=== PATIENT | female | born 1985 | race African-American/Black ===

== ENCOUNTER 2020-10-21 13:09 | Emergency (ER) | payer MEDICAID ==
[~2020-10-21] VITALS: Ht 172.7 cm; Wt 73.9 kg
[~2020-10-21 13:09] MED LIST: CEPH-37 PO; NITR-87 PO; PREN-96 PO
[2020-10-21 14:29] LABS: Basophils # (auto) 0 10 ^3/uL (0-0.2); Eosinophils # (auto) 0.1 10 ^3/uL (0-0.8); Lymphocytes % (auto) 15.6 % (10.0-50.0); Monocytes # (auto) 0.8 10 ^3/uL (0-1.3); Red Blood Cells 3.76 10^6/uL (4.0-5.20)
[2020-10-21 14:31] LABS: Basophils % (auto) 0.2 % (0.0-2.0); Eosinophils % (auto) 0.7 % (0.0-7.0); Hematocrit 37.7 % (36.0-46.0); Hemoglobin 13.1 g/dL (12.2-16.2); Mean Corpuscular Hemoglobin 34.7 pg (28.0-32.0); Mean Corpuscular Hgb Conc. 34.6 g/dL (32.0-36.0); Mean Corpuscular Volume 100.3 fL (80.0-100.0); Monocytes % (auto) 6.5 % (0.0-12.0); Neutrophils # (auto) 9.8 10 ^3/uL (1.6-8.6); Red Cell Distribution Width 12.4 % (11.8-14.3); White Blood Cell 12.8 10^3/uL (4.4-10.8)
[2020-10-21 15:33] LABS: Urine Bacteria FEW /hpf (None Seen); Urine Blood 3+ /uL (Negative); Urine Specific Gravity 1.004 (1.001-1.035); Urine WBC 6 /hpf (0 - 5)
[2020-10-21 17:05] VITALS: BP 110/66
== END 2020-10-21 17:28 | disposition home or self-care (01) ==
LOC: ER 13:09
DX: O20.0 Threatened abortion (principal); O23.41 Unspecified infection of urinary tract in pregnancy, first trimester; Z3A.11 11 weeks gestation of pregnancy; Z79.899 Other long term (current) drug therapy
CPT/HCPCS: 36415; 76801; 81001; 84702; 85025

== ENCOUNTER 2021-02-02 09:52 | Observation (INO) | payer MEDICAID | END 2021-02-02 11:39 | disposition home or self-care (01) | LOC: LDRP 09:52 | PROVIDERS: ADMIT Obstetrics & Gynecology Obstetrics; ATTEND Obstetrics & Gynecology Obstetrics | DX: O26.852 Spotting complicating pregnancy, second trimester (principal); O26.893 Other specified pregnancy related conditions, third trimester; N89.8 Other specified noninflammatory disorders of vagina; Z3A.26 26 weeks gestation of pregnancy | CPT/HCPCS: 59025; 81002; 94760; G0378; G0379 ==

== ENCOUNTER 2021-03-30 08:29 | Observation (INO) | payer MEDICAID | END 2021-03-30 10:08 | disposition home or self-care (01) | LOC: LDRP 08:29 | PROVIDERS: ADMIT Obstetrics & Gynecology Obstetrics; ATTEND Obstetrics & Gynecology Obstetrics | DX: O99.891 Other specified diseases and conditions complicating pregnancy (principal); N13.30 Unspecified hydronephrosis; Z3A.34 34 weeks gestation of pregnancy | CPT/HCPCS: 59025; 76818; 81002; 94760; G0378; G0379 ==

== ENCOUNTER 2021-04-08 09:00 | Outpatient (CLI) | payer MEDICAID | END 2021-04-08 09:50 | disposition home or self-care (01) | LOC: OB 09:00 → LDRP 09:10 → UNDOADMOB 09:10 → EDSTATUS 09:49 → UNDODISOB 09:50 → OB 09:50 | PROVIDERS: ATTEND Obstetrics & Gynecology | DX: O99.891 Other specified diseases and conditions complicating pregnancy (principal); N13.30 Unspecified hydronephrosis; Z3A.00 Weeks of gestation of pregnancy not specified | CPT/HCPCS: 76818; G0378 ==

== ENCOUNTER 2022-01-09 19:37 | Observation (INO) | payer MEDICAID | END 2022-01-09 20:45 | disposition home or self-care (01) | LOC: LDRP 19:37 | PROVIDERS: ADMIT Obstetrics & Gynecology Obstetrics; ATTEND Obstetrics & Gynecology Obstetrics | DX: O26.892 Other specified pregnancy related conditions, second trimester (principal); R10.9 Unspecified abdominal pain; O26.852 Spotting complicating pregnancy, second trimester; O99.282 Endocrine, nutritional and metabolic diseases complicating pregnancy, second trimester; E86.0 Dehydration; Z3A.21 21 weeks gestation of pregnancy | CPT/HCPCS: 59025; 81002; G0378 ==

== ENCOUNTER 2022-02-27 14:15 | Observation (INO) | payer MEDICAID | END 2022-02-27 15:47 | disposition home or self-care (01) | LOC: LDRP 14:15 | PROVIDERS: ADMIT Obstetrics & Gynecology; ATTEND Obstetrics & Gynecology | DX: O40.3XX0 Polyhydramnios, third trimester, not applicable or unspecified (principal); O09.523 Supervision of elderly multigravida, third trimester; Z3A.28 28 weeks gestation of pregnancy | CPT/HCPCS: 59025; 81002; 94760; G0378 ==

== ENCOUNTER 2022-03-02 18:45 | Observation (INO) | payer MEDICAID | END 2022-03-02 19:52 | disposition home or self-care (01) | LOC: LDRP 18:45 | PROVIDERS: ADMIT Obstetrics & Gynecology; ATTEND Obstetrics & Gynecology | DX: O40.3XX0 Polyhydramnios, third trimester, not applicable or unspecified (principal); O09.523 Supervision of elderly multigravida, third trimester; Z3A.28 28 weeks gestation of pregnancy | CPT/HCPCS: 59025; 81002; G0378 ==

== ENCOUNTER 2022-03-09 19:05 | Observation (INO) | payer MEDICAID | END 2022-03-09 19:35 | disposition left against medical advice (07) | LOC: LDRP 19:05 | PROVIDERS: ADMIT Obstetrics & Gynecology; ATTEND Obstetrics & Gynecology | DX: O40.3XX0 Polyhydramnios, third trimester, not applicable or unspecified (principal); Z3A.30 30 weeks gestation of pregnancy ==

== ENCOUNTER 2022-03-10 14:29 | Observation (INO) | payer MEDICAID | END 2022-03-10 17:26 | disposition home or self-care (01) | LOC: LDRP 14:29 → UNDOADMOB 14:29 → LDRP 15:35 → UNDODISOB 17:26 | PROVIDERS: ADMIT Obstetrics & Gynecology; ATTEND Obstetrics & Gynecology | DX: O40.3XX0 Polyhydramnios, third trimester, not applicable or unspecified (principal); Z3A.30 30 weeks gestation of pregnancy | CPT/HCPCS: 59025; 76818; 81002; 94760; G0378 ==

== ENCOUNTER 2022-03-12 14:11 | Observation (INO) | payer MEDICAID ==
[~2022-03-12 14:11] MED LIST changes: -CEPH-37 PO; -NITR-87 PO
== END 2022-03-12 16:35 | disposition home or self-care (01) ==
LOC: LDRP 14:59 → UNDOADMOB 14:59 → LDRP 15:01
PROVIDERS: ADMIT Obstetrics & Gynecology; ATTEND Obstetrics & Gynecology
DX: O40.3XX0 Polyhydramnios, third trimester, not applicable or unspecified (principal); Z3A.30 30 weeks gestation of pregnancy
CPT/HCPCS: 59025; 76818; 81002; G0378

== ENCOUNTER 2022-03-16 15:35 | Observation (INO) | payer MEDICAID | END 2022-03-16 16:40 | disposition home or self-care (01) | LOC: LDRP 15:35 → UNDOADMOB 15:35 → LDRP 15:39 | PROVIDERS: ADMIT Obstetrics & Gynecology; ATTEND Obstetrics & Gynecology | DX: O40.3XX0 Polyhydramnios, third trimester, not applicable or unspecified (principal); O26.893 Other specified pregnancy related conditions, third trimester; R10.2 Pelvic and perineal pain; Z3A.30 30 weeks gestation of pregnancy | CPT/HCPCS: 59025; 76818; 81002; 94760; G0378 ==

== ENCOUNTER 2022-03-19 15:12 | Observation (INO) | payer MEDICAID | END 2022-03-19 16:30 | disposition home or self-care (01) | LOC: UNDOADMOB 15:12 → LDRP 15:12 | PROVIDERS: ADMIT Obstetrics & Gynecology; ATTEND Obstetrics & Gynecology | DX: O40.3XX0 Polyhydramnios, third trimester, not applicable or unspecified (principal); O32.1XX0 Maternal care for breech presentation, not applicable or unspecified; Z3A.31 31 weeks gestation of pregnancy | CPT/HCPCS: 59025; 76818; 81002; 94760; G0378 ==

== ENCOUNTER 2022-03-23 14:50 | Observation (INO) | payer MEDICAID | END 2022-03-23 16:05 | disposition home or self-care (01) | LOC: UNDOADMOB 14:50 → LDRP 14:50 | PROVIDERS: ADMIT Obstetrics & Gynecology; ATTEND Obstetrics & Gynecology | DX: O40.3XX0 Polyhydramnios, third trimester, not applicable or unspecified (principal); Z3A.31 31 weeks gestation of pregnancy | CPT/HCPCS: 59025; 76818; 81002; 94760; G0378 ==

== ENCOUNTER 2022-03-26 14:37 | Observation (INO) | payer MEDICAID | END 2022-03-26 16:21 | disposition home or self-care (01) | LOC: UNDOADMOB 14:59 → LDRP 14:59 | PROVIDERS: ADMIT Obstetrics & Gynecology; ATTEND Obstetrics & Gynecology | DX: O40.3XX0 Polyhydramnios, third trimester, not applicable or unspecified (principal); O36.8330 Maternal care for abnormalities of the fetal heart rate or rhythm, third trimester, not applicable or unspecified; Z3A.32 32 weeks gestation of pregnancy | CPT/HCPCS: 59025; 76818; 81002; 94760; G0378 ==

== ENCOUNTER 2022-03-30 13:07 | Observation (INO) | payer MEDICAID | END 2022-03-30 17:07 | disposition home or self-care (01) | LOC: LDRP 14:55 → UNDOADMOB 14:55 → LDRP 15:03 | PROVIDERS: ADMIT Obstetrics & Gynecology; ATTEND Obstetrics & Gynecology | DX: O40.3XX0 Polyhydramnios, third trimester, not applicable or unspecified (principal); O26.893 Other specified pregnancy related conditions, third trimester; R10.2 Pelvic and perineal pain; Z3A.32 32 weeks gestation of pregnancy | CPT/HCPCS: 59025; 76818; 81002; 94760; G0378 ==

== ENCOUNTER 2022-04-02 09:31 | Observation (INO) | payer MEDICAID | END 2022-04-02 15:23 | disposition home or self-care (01) | LOC: LDRP 14:03 → UNDOADMOB 14:25 → LDRP 14:25 → UNDODISOB 15:23 | PROVIDERS: ADMIT Obstetrics & Gynecology; ATTEND Obstetrics & Gynecology | DX: O40.3XX0 Polyhydramnios, third trimester, not applicable or unspecified (principal); Z3A.33 33 weeks gestation of pregnancy | CPT/HCPCS: 59025; 76818; 81002; G0378 ==

== ENCOUNTER 2022-04-06 14:25 | Observation (INO) | payer MEDICAID | END 2022-04-06 15:43 | disposition home or self-care (01) | LOC: LDRP 14:25 → UNDOADMOB 14:25 → LDRP 14:28 | PROVIDERS: ADMIT Obstetrics & Gynecology; ATTEND Obstetrics & Gynecology | DX: O40.3XX0 Polyhydramnios, third trimester, not applicable or unspecified (principal); Z3A.33 33 weeks gestation of pregnancy | CPT/HCPCS: 59025; 76818; 81002; 94760; G0378 ==

== ENCOUNTER 2022-04-09 08:56 | Observation (INO) | payer MEDICAID | END 2022-04-09 15:23 | disposition home or self-care (01) | LOC: LDRP 14:15 → UNDOADMOB 14:37 → LDRP 14:37 → UNDODISOB 15:23 | PROVIDERS: ADMIT Obstetrics & Gynecology; ATTEND Obstetrics & Gynecology | DX: O40.3XX0 Polyhydramnios, third trimester, not applicable or unspecified (principal); Z3A.34 34 weeks gestation of pregnancy | CPT/HCPCS: 59025; 76818; 81002; 94760; G0378 ==

== ENCOUNTER 2022-04-13 14:04 | Observation (INO) | payer MEDICAID | END 2022-04-13 15:48 | disposition home or self-care (01) | LOC: UNDOADMOB 14:04 → LDRP 14:04 → UNDODISOB 15:48 | PROVIDERS: ADMIT Obstetrics & Gynecology; ATTEND Obstetrics & Gynecology | DX: O40.3XX0 Polyhydramnios, third trimester, not applicable or unspecified (principal); Z3A.34 34 weeks gestation of pregnancy | CPT/HCPCS: 59025; 76818; 81002; 94760; G0378 ==

== ENCOUNTER 2022-04-14 15:18 | Observation (INO) | payer MEDICAID ==
[2022-04-14 17:43] LABS: Urine Bacteria FEW /hpf (None Seen); Urine Blood Negative /uL (Negative); Urine Budding Yeast FEW /hpf (None Seen); Urine Mucus FEW (None Seen); Urine Specific Gravity 1.019 (1.001-1.035); Urine WBC 5 /hpf (0 - 5)
[2022-04-16 08:06] LABS: RPR Non Reactive (Non Reactive)
== END 2022-04-14 16:50 | disposition home or self-care (01) ==
LOC: LDRP 15:18 → UNDOADMOB 15:18 → LDRP 16:11
PROVIDERS: ADMIT Obstetrics & Gynecology; ATTEND Obstetrics & Gynecology
DX: O26.893 Other specified pregnancy related conditions, third trimester (principal); N89.8 Other specified noninflammatory disorders of vagina; L29.2 Pruritus vulvae; O62.9 Abnormality of forces of labor, unspecified; Z3A.35 35 weeks gestation of pregnancy; Z79.899 Other long term (current) drug therapy
CPT/HCPCS: 59025; 81001; 81002; 86592; 87086; 87210; 87491; 87591; G0378

== ENCOUNTER 2022-04-16 14:02 | Observation (INO) | payer MEDICAID | END 2022-04-16 15:57 | disposition home or self-care (01) | LOC: LDRP 14:02 | PROVIDERS: ADMIT Obstetrics & Gynecology; ATTEND Obstetrics & Gynecology | DX: O40.3XX0 Polyhydramnios, third trimester, not applicable or unspecified (principal); Z3A.35 35 weeks gestation of pregnancy | CPT/HCPCS: 59025; 76818; 81002; 94760; G0378 ==

== ENCOUNTER 2022-04-20 14:16 | Observation (INO) | payer MEDICAID | END 2022-04-20 15:30 | disposition home or self-care (01) | LOC: LDRP 14:16 → UNDOADMOB 14:16 → LDRP 14:29 | PROVIDERS: ADMIT Obstetrics & Gynecology; ATTEND Obstetrics & Gynecology | DX: O24.419 Gestational diabetes mellitus in pregnancy, unspecified control (principal); Z3A.35 35 weeks gestation of pregnancy | CPT/HCPCS: 59025; 81002; 94760; G0378 ==

== ENCOUNTER 2022-04-22 14:44 | Observation (INO) | payer MEDICAID | END 2022-04-22 16:35 | disposition home or self-care (01) | LOC: LDRP 14:58 → UNDOADMOB 15:02 → LDRP 15:02 | PROVIDERS: ADMIT Obstetrics & Gynecology; ATTEND Obstetrics & Gynecology | DX: O40.3XX0 Polyhydramnios, third trimester, not applicable or unspecified (principal); O09.523 Supervision of elderly multigravida, third trimester; Z3A.36 36 weeks gestation of pregnancy | CPT/HCPCS: 59025; 76818; 81002; 94760; G0378 ==

== ENCOUNTER 2022-04-27 08:51 | Observation (INO) | payer MEDICAID ==
[2022-05-12] MEDS ORDERED: ACETAMINOPHEN 325 MG TAB PO ONE (17:15)
== END 2022-05-12 17:49 | disposition home or self-care (01) ==
LOC: UNDOADMOB 05-12 14:27 → LDRP 05-12 14:27
PROVIDERS: ADMIT Obstetrics & Gynecology; ATTEND Obstetrics & Gynecology
DX: O40.3XX0 Polyhydramnios, third trimester, not applicable or unspecified (principal); O62.9 Abnormality of forces of labor, unspecified; Z3A.39 39 weeks gestation of pregnancy
CPT/HCPCS: 59025; 76818; 81002; 94760; G0378

== ENCOUNTER 2022-04-29 07:42 | Observation (INO) | payer MEDICAID | END 2022-04-29 15:55 | disposition home or self-care (01) | LOC: LDRP 14:07 → UNDOADMOB 14:14 → LDRP 14:14 | PROVIDERS: ADMIT Obstetrics & Gynecology; ATTEND Obstetrics & Gynecology | DX: O40.3XX0 Polyhydramnios, third trimester, not applicable or unspecified (principal); Z3A.37 37 weeks gestation of pregnancy | CPT/HCPCS: 59025; 76818; 81002; 94760; G0378 ==

== ENCOUNTER 2022-05-15 17:15 | Observation (INO) | payer MEDICAID ==
[2022-05-15] MEDS ORDERED: WITCH HAZEL-GLYCERIN PAD TOP ONE (18:15)
[2022-05-15] MEDS ORDERED: TUCKS TOP (19:05)
== END 2022-05-15 19:22 | disposition home or self-care (01) ==
LOC: LDRP 17:15
PROVIDERS: ADMIT Obstetrics & Gynecology; ATTEND Obstetrics & Gynecology
DX: O99.891 Other specified diseases and conditions complicating pregnancy (principal); M54.50 Low back pain, unspecified; M62.89 Other specified disorders of muscle; O62.9 Abnormality of forces of labor, unspecified; Z3A.39 39 weeks gestation of pregnancy
CPT/HCPCS: 59025; 81002; 94760; G0378

== ENCOUNTER → 2022-05-18 | Outpatient (CLI) | payer MEDICAID ==
[~2022-05-18] MED LIST changes: +TUCKS TOP
[2022-05-18 09:02] LABS: Basophils # (auto) 0 10 ^3/uL (0-0.2); Eosinophils # (auto) 0.1 10 ^3/uL (0-0.8); Lymphocytes # (auto) 1.8 10 ^3/uL (0.4-5.4); Monocytes # (auto) 0.9 10 ^3/uL (0-1.3); Neutrophils % (auto) 66.9 % (37.0-80.0)
[2022-05-18 09:04] LABS: Basophils % (auto) 0.2 % (0.0-2.0); Eosinophils % (auto) 0.8 % (0.0-7.0); Hematocrit 37.5 % (36.0-46.0); Lymphocytes % (auto) 21.3 % (10.0-50.0); Mean Corpuscular Hgb Conc. 34.7 g/dL (32.0-36.0); Mean Corpuscular Volume 106.5 fL (80.0-100.0); Monocytes % (auto) 10.8 % (0.0-12.0); Neutrophils # (auto) 5.7 10 ^3/uL (1.6-8.6); Nucleated Red Blood Cells % 0.1 %; Red Blood Cells 3.52 10^6/uL (4.0-5.20); Red Cell Distribution Width 12.6 % (11.8-14.3); White Blood Cell 8.5 10^3/uL (4.4-10.8)
== END | disposition home or self-care (01) ==
LOC: LAB 08:50
PROVIDERS: ATTEND Obstetrics & Gynecology
DX: Z34.80 Encounter for supervision of other normal pregnancy, unspecified trimester (principal); Z3A.00 Weeks of gestation of pregnancy not specified
CPT/HCPCS: 36415; 85025

== ENCOUNTER 2022-05-19 07:03 | Inpatient (IN) | payer MEDICAID ==
[~2022-05-19] VITALS: Ht 172.7 cm; Wt 86.2 kg
[2022-05-20] MEDS ORDERED: LACT. RINGERS/OXYTOCIN 20UNITS 500 ML IV ONE ×2 (07:15→07:45)
[2022-05-20] MEDS ORDERED: miSOPROStol 100 mcg TAB PR PRN (07:15)
[2022-05-20] MEDS ORDERED: WITCH HAZEL-GLYCERIN PAD TOP PRN (07:15)
[2022-05-20] MEDS ORDERED: PROMETHAZINE HCL 25 MG/ML 1ML IV PRN (07:15)
[2022-05-20] MEDS ORDERED: BUTORPHANOL TARTRATE 2 MG/1 ML VIAL IV PRN ×2 (07:15)
[2022-05-20] MEDS ORDERED: METHYLERGONOVINE MALEATE 0.2 MG/ML AMP IM PRN (07:15)
[2022-05-20] MEDS ORDERED: DERMOPLAST 60ML BOTTLE TOP PRN (07:15)
[2022-05-20] MEDS ORDERED: LIDOCAINE 2%HCL (LOCAL ANESTH.) INJ 20ML MDV IJ PRN (07:15)
[2022-05-20] MEDS ORDERED: CARBOPROST TROMETHAMINE 250 MCG/1ML VIAL IM PRN (07:15)
[2022-05-20] MEDS ORDERED: PHISODERM TOP SOLN 240ML BTL TOP PRN (07:15)
[2022-05-20] MEDS ORDERED: PENICILLIN G POT 5MIL/D5 50ML 50 ML IV ONE (07:30)
[2022-05-20 07:47] LABS: Hematocrit 38.3 % (36.0-46.0); Lymphocytes # (auto) 1.7 10 ^3/uL (0.4-5.4); Monocytes # (auto) 0.9 10 ^3/uL (0-1.3); Red Blood Cells 3.67 10^6/uL (4.0-5.20); Red Cell Distribution Width 12.7 % (11.8-14.3)
[2022-05-20 07:50] LABS: Basophils # (auto) 0.1 10 ^3/uL (0-0.2); Basophils % (auto) 0.6 % (0.0-2.0); Eosinophils # (auto) 0.1 10 ^3/uL (0-0.8); Eosinophils % (auto) 0.8 % (0.0-7.0); Hemoglobin 13.7 g/dL (12.2-16.2); Lymphocytes % (auto) 19.7 % (10.0-50.0); Mean Corpuscular Hemoglobin 37.4 pg (28.0-32.0); Mean Corpuscular Hgb Conc. 35.9 g/dL (32.0-36.0); Mean Corpuscular Volume 104.4 fL (80.0-100.0); Monocytes % (auto) 10.7 % (0.0-12.0); Neutrophils # (auto) 5.9 10 ^3/uL (1.6-8.6); Neutrophils % (auto) 68.2 % (37.0-80.0); Nucleated Red Blood Cells % 0.2 %; White Blood Cell 8.6 10^3/uL (4.4-10.8)
[2022-05-20 08:05] LABS: Urine Bacteria FEW /hpf (None Seen); Urine Blood Negative /uL (Negative); Urine Mucus FEW (None Seen); Urine Specific Gravity 1.016 (1.001-1.035); Urine WBC 9 /hpf (0 - 5)
[2022-05-20 08:12] LABS: Albumin 2.8 g/dL (3.4-5.0); Calcium 8.8 mg/dL (8.5-10.1); Potassium 3.7 mmol/L (3.5-5.1)
[2022-05-20 08:15] LABS: BUN/Creatinine Ratio 9.7 (10.0-20.0); Bilirubin, Total 0.6 mg/dL (0.2-1.0); Total Protein 6.9 g/dL (6.4-8.2)
[2022-05-20] MEDS ORDERED: miSOPROStol 50 MCG per PRE-CUT 1/2 TAB PO PRN (08:30)
[2022-05-20 08:32] LABS: Alcohol, Urine < 3.0 mg/dL (0-10); Amphetamine Screen, Urine NEGATIVE (NEGATIVE); Barbiturate Scree,Urine NEGATIVE (NEGATIVE); Benzodiazephine Screen, Urine NEGATIVE (NEGATIVE); Cannabinoid Screen, Urine NEGATIVE (NEGATIVE); Cocaine Screen, Urine NEGATIVE (NEGATIVE); Opiate Scree,Urine NEGATIVE (NEGATIVE); Phencyclidine Screen, Urine NEGATIVE (NEGATIVE)
[2022-05-20 08:33] LABS: INR 0.94 (0.9-1.15); Partial Thromboplastin Time 26.8 sec (24.6-33.4)
[2022-05-20] MEDS: LACTATED RINGER'S 1,000 ML IV SCH ×2 (08:35→15:15)
[2022-05-20] MEDS ORDERED: DIPHENOXYLATE W/ATROPINE 2.5 MG TAB PO SCH (10:00)
[2022-05-20] MEDS ORDERED: PENICILLIN G POTASSIUM 2,500,000 UNITS in D5W 5% 50 ML IV SCH (11:30)
[2022-05-20] MEDS ORDERED: TERBUTALINE SULFATE 1 MG/ML 1ML VIAL SC PRN (12:30)
[2022-05-20] MEDS ORDERED: LACT. RINGERS/OXYTOCIN 20UNITS 1,000 ML IV SCH (12:30)
[2022-05-20] MEDS: PENICILLIN G POTASSIUM 2,500,000 UNITS in D5W 5% 50 ML IV SCH ×2 (13:08→16:30)
[2022-05-20] MEDS ORDERED: LIDOCAINE W/ EPINEPHRINE 1.5 % INJ 5ML AMP IJ ONE (14:00)
[2022-05-20] MEDS ORDERED: fentaNYL CITRATE 100 MCG/2 ML VL IV ONE (14:00)
[2022-05-20] MEDS ORDERED: ROPIVACAINE HCL 200 ML EPI SCH (14:00)
[2022-05-20] MEDS ORDERED: ePHEDrine SULFATE 50 MG/ML AMP IV ONE (14:00)
[2022-05-20] MEDS ORDERED: NALOXONE HCL 0.4 MG/ML VIAL IV ONE (14:00)
[2022-05-20] MEDS ORDERED: Lidocaine W-Epinephrine 1.5%-1:200,000 INJ 10ml Vial ONE (14:14)
[2022-05-20] MEDS ORDERED: ACETAMINOPHEN 325 MG TAB PO PRN (17:00)
[2022-05-20] MEDS ORDERED: ONDANSETRON ODT 4 MG TAB PO PRN (17:00)
[2022-05-20 19:00] VITALS: BP 99/57
[2022-05-20 22:45] VITALS: BP 101/62
[2022-05-21] MEDS: IBUPROFEN 600 MG TAB PO PRN ×3 (00:37→18:50)
[2022-05-21 03:00] VITALS: BP 107/57
[2022-05-21 07:15] VITALS: BP 98/54
[2022-05-21 08:07] LABS: RPR Non Reactive (Non Reactive)
[2022-05-21 09:30] LABS: Basophils # (auto) 0 10 ^3/uL (0-0.2); Eosinophils # (auto) 0.1 10 ^3/uL (0-0.8); Hemoglobin 13.2 g/dL (12.2-16.2); Monocytes # (auto) 1.3 10 ^3/uL (0-1.3); Nucleated Red Blood Cells % 0.1 %
[2022-05-21 09:32] LABS: Basophils % (auto) 0.3 % (0.0-2.0); Eosinophils % (auto) 0.7 % (0.0-7.0); Lymphocytes # (auto) 1.7 10 ^3/uL (0.4-5.4); Lymphocytes % (auto) 12.9 % (10.0-50.0); Mean Corpuscular Hemoglobin 36.2 pg (28.0-32.0); Mean Corpuscular Hgb Conc. 33.9 g/dL (32.0-36.0); Mean Corpuscular Volume 106.5 fL (80.0-100.0); Monocytes % (auto) 10.5 % (0.0-12.0); Neutrophils # (auto) 9.7 10 ^3/uL (1.6-8.6); Neutrophils % (auto) 75.6 % (37.0-80.0); Red Blood Cells 3.66 10^6/uL (4.0-5.20); Red Cell Distribution Width 12.7 % (11.8-14.3); White Blood Cell 12.8 10^3/uL (4.4-10.8)
[2022-05-21 11:00] VITALS: BP 105/67
[2022-05-21 15:15] VITALS: BP 95/53
[2022-05-21 18:50] VITALS: BP 103/61
[2022-05-21 22:44] VITALS: BP 100/72
[2022-05-22 03:05] VITALS: BP 98/45
[2022-05-22] MEDS: IBUPROFEN 600 MG TAB PO PRN (03:27)
[2022-05-22 07:15] VITALS: BP 114/50
== END 2022-05-22 09:15 | disposition home or self-care (01) | DRG 560 ==
LOC: EDSTATUS 07:03 → LDRP 05-20 07:03
PROVIDERS: ADMIT Obstetrics & Gynecology; ATTEND Obstetrics & Gynecology
PROC: 10E0XZZ Delivery of Products of Conception, External Approach (ICD-10-PCS; principal; 2022-05-20)
PROC: 3E0P7VZ Introduction of Hormone into Female Reproductive, Via Natural or Artificial Opening (ICD-10-PCS; 2022-05-20)
PROC: 10907ZC Drainage of Amniotic Fluid, Therapeutic from Products of Conception, Via Natural or Artificial Opening (ICD-10-PCS; 2022-05-20)
PROC: 0UQMXZZ Repair Vulva, External Approach (ICD-10-PCS; 2022-05-20)
PROC: 3E0R3BZ Introduction of Anesthetic Agent into Spinal Canal, Percutaneous Approach (ICD-10-PCS; 2022-05-20)
PROC: 00HU33Z Insertion of Infusion Device into Spinal Canal, Percutaneous Approach (ICD-10-PCS; 2022-05-20)
DX: O48.0 Post-term pregnancy (principal); Z37.0 Single live birth; O69.81X0 Labor and delivery complicated by cord around neck, without compression, not applicable or unspecified; O70.0 First degree perineal laceration during delivery; Z20.822 Contact with and (suspected) exposure to COVID-19; Z3A.40 40 weeks gestation of pregnancy; O77.0 Labor and delivery complicated by meconium in amniotic fluid
CPT/HCPCS: 36415; 59025; 59409; 62282; 80053; 80307; 81001; 81002; 85025; 85610; 85730; 86592; 86850; 86900; 86901; 87426; 94760; 94762; 96360; 96361; G0378; J2540; J2590; J7060

== ENCOUNTER 2023-05-09 11:15 | Emergency (ER) | payer MEDICAID ==
[~2023-05-09] VITALS: Ht 172.7 cm; Wt 72.9 kg
[2023-05-09 11:34] VITALS: BP 133/50; PULSE 65; RESP 17; O2SAT 99
[2023-05-09 13:25] LABS: Basophils # (auto) 0 10 ^3/uL (0-0.2); Basophils % (auto) 0.2 % (0.0-2.0); Mean Corpuscular Hgb Conc. 33.5 g/dL (32.0-36.0); Red Cell Distribution Width 12.3 % (11.8-14.3)
[2023-05-09 13:27] LABS: Eosinophils # (auto) 0.2 10 ^3/uL (0-0.8); Eosinophils % (auto) 2.5 % (0.0-7.0); Hematocrit 43.3 % (36.0-46.0); Hemoglobin 14.5 g/dL (12.2-16.2); Lymphocytes # (auto) 1.9 10 ^3/uL (0.4-5.4); Lymphocytes % (auto) 20.5 % (10.0-50.0); Mean Corpuscular Hemoglobin 34.4 pg (28.0-32.0); Mean Corpuscular Volume 102.8 fL (80.0-100.0); Monocytes # (auto) 0.6 10 ^3/uL (0-1.3); Monocytes % (auto) 6.8 % (0.0-12.0); Neutrophils # (auto) 6.5 10 ^3/uL (1.6-8.6); Nucleated Red Blood Cells % 0.1 %; Red Blood Cells 4.21 10^6/uL (4.0-5.20); White Blood Cell 9.3 10^3/uL (4.4-10.8)
[2023-05-09 13:49] LABS: Alanine Aminotransferase 32 U/L (7-40); Albumin 4.5 g/dL (3.2-4.8); Alkaline Phosphatase 91 U/L (46-116); Anion Gap 6 (5-15); Aspartate Aminotransferase 24 U/L (13-40); BUN/Creatinine Ratio 9.6 (10.0-20.0); Blood Urea Nitrogen 7 mg/dL (9-23); Calcium 9.7 mg/dL (8.7-10.4); Carbon Dioxide 26 mmol/L (20-30); Chloride 106 mmol/L (98-107); Glucose 91 mg/dL (74-106); Lipase 31 U/L (12-53); Potassium 4.1 mmol/L (3.5-5.1); Sodium 138 mmol/L (136-145)
[2023-05-09 13:50] LABS: Bilirubin, Total 0.8 mg/dL (0.2-1.0); Total Protein 7.3 g/dL (5.7-8.2)
== END 2023-05-09 17:48 | disposition left against medical advice (07) ==
LOC: ER 11:15
DX: D18.09 Hemangioma of other sites (principal); R10.2 Pelvic and perineal pain; R16.0 Hepatomegaly, not elsewhere classified; K52.9 Noninfective gastroenteritis and colitis, unspecified; Z79.899 Other long term (current) drug therapy
CPT/HCPCS: 36415; 74176; 76705; 80053; 83605; 83690; 84484; 84702; 85025

== ENCOUNTER 2024-08-07 13:27 | Outpatient (CLI) | payer MEDICAID ==
[2024-08-07 14:00] LABS: Basophils # (auto) 0 10 ^3/uL (0-0.2); Eosinophils # (auto) 0.2 10 ^3/uL (0-0.8); Mean Corpuscular Volume 103.3 fL (80.0-100.0); Red Blood Cells 3.44 10^6/uL (4.0-5.20)
[2024-08-07 14:02] LABS: Basophils % (auto) 0.4 % (0.0-2.0); Eosinophils % (auto) 1.8 % (0.0-7.0); Hematocrit 35.5 % (36.0-46.0); Hemoglobin 12.2 g/dL (12.2-16.2); Lymphocytes # (auto) 1.4 10 ^3/uL (0.4-5.4); Lymphocytes % (auto) 13.7 % (10.0-50.0); Mean Corpuscular Hemoglobin 35.6 pg (28.0-32.0); Mean Corpuscular Hgb Conc. 34.4 g/dL (32.0-36.0); Monocytes # (auto) 0.4 10 ^3/uL (0-1.3); Monocytes % (auto) 4.3 % (0.0-12.0); Neutrophils % (auto) 79.8 % (37.0-80.0); Platelet Count (auto) 247 10^3/uL (140-450); Red Cell Distribution Width 12.6 % (11.8-14.3)
[2024-08-07 14:31] LABS: Amphetamine Screen, Urine Neg (NEGATIVE); Barbiturate Scree,Urine Neg (NEGATIVE); Benzodiazephine Screen, Urine Neg (NEGATIVE); Cannabinoid Screen, Urine Neg (NEGATIVE); Cocaine Screen, Urine Neg (NEGATIVE); Opiate Scree,Urine Neg (NEGATIVE); Phencyclidine Screen, Urine Neg (NEGATIVE)
[2024-08-09 03:07] LABS: Chlamydia Trachomatis, NAA Negative (Negative); Neisseria gonorrhoeae, NAA Negative (Negative)
[2024-08-11 01:06] LABS: QuantiFERON-TB Gold Plus Negative (Negative)
[2024-08-12 05:07] LABS: Hgb A 96.9 % (96.4-98.8); Hgb A2 3.1 % (1.8-3.2)
== END 2024-08-07 17:00 | disposition home or self-care (01) ==
LOC: LAB 13:27
PROVIDERS: ATTEND Obstetrics & Gynecology
DX: Z34.83 Encounter for supervision of other normal pregnancy, third trimester (principal); Z31.430 Encounter of female for testing for genetic disease carrier status for procreative management; Z3A.00 Weeks of gestation of pregnancy not specified
CPT/HCPCS: 36415; 80307; 83021; 83036; 84144; 84702; 85025; 85660; 86703; 86762; 86780; 86850; 86900; 86901; 87086; 87340

== ENCOUNTER 2024-09-18 10:18 | Observation (INO) | payer MEDICAID ==
[2024-09-18 10:56] LABS: Nucleated Red Blood Cells % 0.0 %
[2024-09-18 10:58] LABS: Hematocrit 36.7 % (36.0-46.0); Hemoglobin 12.5 g/dL (12.2-16.2); Mean Corpuscular Hemoglobin 35.7 pg (28.0-32.0); Mean Corpuscular Volume 104.8 fL (80.0-100.0)
[2024-09-18 11:13] LABS: INR 0.97 (0.9-1.15); Partial Thromboplastin Time 27.5 SEC (24.5-34.5); Prothrombin Time 10.3 sec (9.3-11.8)
[2024-09-18 11:14] LABS: Alanine Aminotransferase 13 U/L (7-40); Albumin 3.9 g/dL (3.2-4.8); Alkaline Phosphatase 77 U/L (46-116); Anion Gap 7 (5-15); Bilirubin, Total 0.5 mg/dL (0.2-1.0); Calcium 9.2 mg/dL (8.7-10.4); Carbon Dioxide 26 mmol/L (20-31); Chloride 105 mmol/L (98-107); Glucose 91 mg/dL (74-106); Potassium 3.6 mmol/L (3.5-5.1); Sodium 138 mmol/L (136-145); Total Protein 6.5 g/dL (5.7-8.2); Uric Acid 3.8 mg/dL (3.1-7.8)
[2024-09-18 11:16] LABS: BUN/Creatinine Ratio 8.9 (10.0-20.0); Blood Urea Nitrogen < 5 mg/dL (9-23)
[2024-09-18 12:08] LABS: Urine Protein, UAD Negative (Negative)
[2024-09-18 12:17] LABS: Protein, Urine 8.0 mg/dL (1-14)
[2024-09-18 15:53] LABS: Amphetamine Screen, Urine Neg (NEGATIVE); Barbiturate Scree,Urine Neg (NEGATIVE); Benzodiazephine Screen, Urine Neg (NEGATIVE)
[2024-09-18 15:54] LABS: Cocaine Screen, Urine Neg (NEGATIVE); Opiate Scree,Urine Neg (NEGATIVE)
[2024-09-18 15:55] LABS: Cannabinoid Screen, Urine Neg (NEGATIVE); Phencyclidine Screen, Urine Neg (NEGATIVE)
--- NOTE | 2024-09-18 18:41 | DVHDS2 ---
Physician Discharge Progress N Final Diagnosis: rule out preeclampsia Operations or Procedures: Operations or Procedures S: 38yo IUP@27.6wks. Pt was sent down from Dr. Crane's office due to elevated BP of 142/88. Denies UCs/LOF/VB/NORIEGA/vision changes/RUQ pain. Endorses +FM. PNC uncomplicated thus far. O: VSS, normotensive NST reactive Laboratory Tests Test 09/18/24 10:44 09/18/24 10:45 09/18/24 12:00 09/18/24 13:23 Range/Units White Blood Count 11.7 H 4.4-10.8 10^3/uL Red Blood Count 3.50 L 4.0-5.20 10^6/uL Hemoglobin 12.5 12.2-16.2 g/dL Hematocrit 36.7 36.0-46.0 % Mean Corpuscular Volume 104.8 H 80.0-100.0 fL Mean Corpuscular Hemoglobin 35.7 H 28.0-32.0 pg Mean Corpuscular Hemoglobin Concent 34.1 32.0-36.0 g/dL Red Cell Distribution Width 12.7 11.8-14.3 % Platelet Count 226 140-450 10^3/uL Mean Platelet Volume 8.1 6.9-10.8 fL Neutrophils (%) (Auto) 78.0 37.0-80.0 % Lymphocytes (%) (Auto) 12.4 10.0-50.0 % Monocytes (%) (Auto) 7.7 0.0-12.0 % Eosinophils (%) (Auto) 1.2 0.0-7.0 % Basophils (%) (Auto) 0.7 0.0-2.0 % Neutrophils # (Auto) 9.1 H 1.6-8.6 10 ^3/uL Lymphocytes # (Auto) 1.4 0.4-5.4 10 ^3/uL Monocytes # (Auto) 0.9 0-1.3 10 ^3/uL Eosinophils # (Auto) 0.1 0-0.8 10 ^3/uL Basophils # (Auto) 0.1 0-0.2 10 ^3/uL Nucleated Red Blood Cells 0.0 % Prothrombin Time 10.3 9.3-11.8 sec Prothrombin Time INR 0.97 0.9-1.15 Activated Partial Thromboplast Time 27.5 24.5-34.5 SEC Sodium Level 138 136-145 mmol/L Potassium Level 3.6 3.5-5.1 mmol/L Chloride Level 105 98-107 mmol/L Carbon Dioxide Level 26 20-31 mmol/L Anion Gap 7 5-15 Blood Urea Nitrogen < 5 L 9-23 mg/dL Creatinine 0.56 0.550-1.02 mg/dL Glomerular Filtration Rate Calc 119 >90 mL/min BUN/Creatinine Ratio 8.9 L 10.0-20.0 Serum Glucose 91 74-106 mg/dL Uric Acid 3.8 3.1-7.8 mg/dL Calcium Level 9.2 8.7-10.4 mg/dL Total Bilirubin 0.5 0.2-1.0 mg/dL Aspartate Amino Transferase (AST) 19 13-40 U/L Alanine Aminotransferase (ALT) 13 7-40 U/L Alkaline Phosphatase 77 46-116 U/L Total Protein 6.5 5.7-8.2 g/dL Albumin 3.9 3.2-4.8 g/dL Urine Creatinine 73.10 30.0-125.0 mg/dL Urine Protein/Creatinine Ratio 0.11 Urine Total Protein 8.0 1-14 mg/dL Urine Color Light-yellow Yellow Urine Clarity Clear Clear Urine pH 7.0 5.0-9.0 Urine Specific [place] 1.012 1.001-1.035 Urine Protein Negative Negative Urine Ketones Negative Negative Urine Blood Negative Negative /uL Urine Nitrite Negative Negative Urine Bilirubin Negative Negative Urine Urobilinogen Normal Negative mg/dL Urine Leukocyte Esterase Negative Negative /uL Urine RBC 1 0 - 4 /hpf Urine Microscopic WBC 2 0-5 /HPF Urine Squamous Epithelial Cells Few <5 /hpf Urine Bacteria None seen None Seen /hpf Urine Glucose Normal Normal mg/dL Urine Opiates Screen Neg NEGATIVE Urine Fentanyl Screen Neg NEGATIVE Urine Barbiturates Screen Neg NEGATIVE Urine Phencyclidine Screen Neg NEGATIVE Urine Amphetamines Screen Neg NEGATIVE Urine Benzodiazepines Screen Neg NEGATIVE Urine Cocaine Screen Neg NEGATIVE Urine Cannabinoids Screen Neg NEGATIVE A: 38yo IUP@27.6wks ruled out preeclampsia P: D/C home FKC/PTL precautions reviewed Dr. Crane consulted, wants pt to return in 1 wk with 24 hour urine collection. Condition on Discharge: Stable Disposition: Home Discharge Instructions: Diet: Regular Activity: No Restrictions, As Tolerated Follow Up/Referral: Follow up with primary Medications: continue all prescription medications exactly as prescribed Follow Up Care: Specialist: return in 1 wk with 24 hour urine collection. Discharge Statement: "Patient was advised to return to the ER or call 911 if any headaches, dizziness, shortness of breath, chest pain, abdominal pain, bleeding, fevers, or worsening of medical condition. Patient was counseled about treatment plan, medications, possible side effects, patientverbalized understanding. All questions were answered to the best of my ability. This discharge took greater then 30 minutes in planning, reviewing documentation, counseling the patient, and discussing with other team members." Visit Coding OBGYN Date of Service: Sep 18, 2024 Billing Provider: FRANCHESKA GARCIA CNM GOLD ASSAYER Common Visit Codes: 86485-[id number] OBS CARE (HIGH) GOLD ASSAYER Procedure Codes: 01683-69- NON-STRESS TEST FRANCHESKA GARCIA CNM Sep 18, 2024 18:41
== END 2024-09-18 13:02 | disposition home or self-care (01) ==
LOC: LDRP 10:18 → UNDOADMOB 10:19 → LDRP 10:19
PROVIDERS: ADMIT Obstetrics & Gynecology; ATTEND Obstetrics & Gynecology
DX: O26.892 Other specified pregnancy related conditions, second trimester (principal); R03.0 Elevated blood-pressure reading, without diagnosis of hypertension; R79.1 Abnormal coagulation profile; Z3A.27 27 weeks gestation of pregnancy; Z79.899 Other long term (current) drug therapy
CPT/HCPCS: 36415; 59025; 80053; 80307; 81001; 81002; 82570; 84156; 84550; 85025; 85610; 85730; G0378

== ENCOUNTER 2024-09-22 08:43 | Observation (INO) | payer MEDICAID ==
[2024-09-22 10:35] LABS: Urine Protein, UAD Negative (Negative)
[2024-09-22 10:40] LABS: Protein, Urine 7.2 mg/dL (1-14)
[2024-09-22 10:43] LABS: Urine Total Volume, 24 Hours 1075.0 mL
[2024-09-22 10:52] LABS: 24 Hr. Total Protein, Urine 77.4 mg/24 Hr (<149.1); Protein, Urine 7.2 mg/dL (1-14)
--- NOTE | 2024-09-22 11:25 | DVHDS2 ---
Physician Discharge Progress N Final Diagnosis: IUP 28 wk, encounter for NST Secondary Diagnosis: High blood pressure reading without diagnosis of HTN Operations or Procedures: Operations or Procedures NST appropriate for gest age Commentary: Commentary urine prot/cr and 24h urine protein WNL BP's normal asymptomatic Condition on Discharge: Stable Disposition: Home Discharge Instructions: Diet: Regular Activity: Light activity Follow Up/Referral: Clinic appt as scheduled w/ Dr Crane Medications: na Follow Up Care: Discharge Statement: "Patient was advised to return to the ER or call 911 if any headaches, dizziness, shortness of breath, chest pain, abdominal pain, bleeding, fevers, or worsening of medical condition. Patient was counseled about treatment plan, medications, possible side effects, patientverbalized understanding. All questions were answered to the best of my ability. This discharge took greater then 30 minutes in planning, reviewing documentation, counseling the patient, and discussing with other team members." Visit Coding OBGYN Date of Service: Sep 22, 2024 Billing Provider: BOBY MCDONALD DO SENIOR JAVA WEB DEVELOPER Common Visit Codes: 09617-WCQ/OBS SAME DATE (MOD) BOBY MCDONALD DO Sep 22, 2024 11:25
== END 2024-09-22 11:41 | disposition home or self-care (01) ==
LOC: LDRP 09:53
PROVIDERS: ADMIT Obstetrics & Gynecology; ATTEND Obstetrics & Gynecology
DX: O26.893 Other specified pregnancy related conditions, third trimester (principal); R03.0 Elevated blood-pressure reading, without diagnosis of hypertension; Z98.890 Other specified postprocedural states; Z79.899 Other long term (current) drug therapy; Z3A.28 28 weeks gestation of pregnancy
CPT/HCPCS: 59025; 81001; 81002; 82570; 84156; 94760; G0378

== ENCOUNTER 2024-11-13 11:53 | Outpatient (CLI) | payer MEDICAID ==
[2024-11-13 12:09] LABS: Nucleated Red Blood Cells % 0.0 %
[2024-11-13 12:11] LABS: Hematocrit 36.1 % (36.0-46.0); Hemoglobin 12.4 g/dL (12.2-16.2); Mean Corpuscular Hemoglobin 36.3 pg (28.0-32.0); Mean Corpuscular Volume 106.0 fL (80.0-100.0)
[2024-11-14 15:07] LABS: Chlamydia Trachomatis, NAA Negative (Negative); Neisseria gonorrhoeae, NAA Negative (Negative)
== END 2024-11-13 17:00 | disposition home or self-care (01) ==
LOC: LAB 11:53
PROVIDERS: ATTEND Obstetrics & Gynecology
DX: Z34.80 Encounter for supervision of other normal pregnancy, unspecified trimester (principal); Z72.51 High risk heterosexual behavior; Z3A.00 Weeks of gestation of pregnancy not specified
CPT/HCPCS: 36415; 85025; 86780

== ENCOUNTER 2024-11-27 11:13 | Observation (INO) | payer MEDICAID ==
--- NOTE | 2024-11-27 13:36 | DVHDS2 ---
Physician Discharge Progress N Final Diagnosis: not in labor Operations or Procedures: Operations or Procedures 38yo IUP@37.6wks, pt sent down from Dr. Crane's office for pelvic pressure. +FM/+BH, denies VB/UCs. VSS NST reactive (last 20 minutes) TOCO irregular UCs SVE by RN: //-2 FKC/preE/labor precautions reviewed. Condition on Discharge: Stable Disposition: Home Discharge Instructions: Diet: Regular Activity: No Restrictions, As Tolerated Medications: see med list Follow Up Care: Specialist: f/u with Dr. Crane as scheduled for visits Discharge Statement: "Patient was advised to return to the ER or call 911 if any headaches, dizziness, shortness of breath, chest pain, abdominal pain, bleeding, fevers, or worsening of medical condition. Patient was counseled about treatment plan, medications, possible side effects, patientverbalized understanding. All questions were answered to the best of my ability. This discharge took greater then 30 minutes in planning, reviewing documentation, counseling the patient, and discussing with other team members." Visit Coding OBGYN Date of Service: Nov 27, 2024 Billing Provider: FRANCHESKA GARCIA CNM PILOT FUEL ENGINEER Common Visit Codes: [id number]-[id number] OBS CARE (HIGH) PILOT FUEL ENGINEER Procedure Codes: 47599-45- NON-STRESS TEST FRANCHESKA GARCIA CNM Nov 27, 2024 13:36
== END 2024-11-27 13:05 | disposition home or self-care (01) ==
LOC: LDRP 11:13
PROVIDERS: ADMIT Obstetrics & Gynecology; ATTEND Obstetrics & Gynecology
DX: O26.893 Other specified pregnancy related conditions, third trimester (principal); R10.2 Pelvic and perineal pain; Z3A.37 37 weeks gestation of pregnancy; Z98.890 Other specified postprocedural states
CPT/HCPCS: 59025; 81002; 94760; G0378

== ENCOUNTER 2024-12-04 11:24 | Observation (INO) | payer MEDICAID ==
--- NOTE | 2024-12-04 13:03 | DVHDS2 ---
Physician Discharge Progress N Final Diagnosis: twins 33 pih ruled out Operations or Procedures: Operations or Procedures nst reactive reviwed,sono Condition on Discharge: Good Disposition: Home Discharge Instructions: Activity: Light activity Medications: na Follow Up Care: Specialist: 1w Discharge Statement: "Patient was advised to return to the ER or call 911 if any headaches, dizziness, shortness of breath, chest pain, abdominal pain, bleeding, fevers, or worsening of medical condition. Patient was counseled about treatment plan, medications, possible side effects, patientverbalized understanding. All questions were answered to the best of my ability. This discharge took greater then 30 minutes in planning, reviewing documentation, counseling the patient, and discussing with other team members." Visit Coding OBGYN Date of Service: Dec 04, 2024 Billing Provider: RUTH BLAKE DO BUILDING MAINTENANCE SUPERVISOR Common Visit Codes: 12026-RHREROW OBS CARE (HIGH) BUILDING MAINTENANCE SUPERVISOR Procedure Codes: 99143-69- NON-STRESS TEST RUTH BLAKE DO Dec 04, 2024 13:03
--- NOTE | 2024-12-04 13:04 | DVHDS2 ---
Physician Discharge Progress N Final Diagnosis: labor check 38wks Operations or Procedures: Operations or Procedures nst reactive reviwed,sono Condition on Discharge: Good Disposition: Home Discharge Instructions: Activity: Light activity Medications: na Follow Up Care: Specialist: 1w Discharge Statement: "Patient was advised to return to the ER or call 911 if any headaches, dizziness, shortness of breath, chest pain, abdominal pain, bleeding, fevers, or worsening of medical condition. Patient was counseled about treatment plan, medications, possible side effects, patientverbalized understanding. All questions were answered to the best of my ability. This discharge took greater then 30 minutes in planning, reviewing documentation, counseling the patient, and discussing with other team members." Visit Coding OBGYN Date of Service: Dec 04, 2024 Billing Provider: RUTH BLAKE DO PATHOLOGY TECHNICIAN Common Visit Codes: 64680-[id number] OBS CARE (HIGH) PATHOLOGY TECHNICIAN Procedure Codes: 79698-96- NON-STRESS TEST RUTH BLAKE DO Dec 04, 2024 13:04
== END 2024-12-04 13:28 | disposition home or self-care (01) ==
LOC: UNDOADMOB 11:24 → LDRP 11:24 → UNDODISOB 13:28
PROVIDERS: ADMIT Obstetrics & Gynecology; ATTEND Obstetrics & Gynecology
DX: O30.003 Twin pregnancy, unspecified number of placenta and unspecified number of amniotic sacs, third trimester (principal); Z3A.33 33 weeks gestation of pregnancy; Z79.899 Other long term (current) drug therapy; Z98.890 Other specified postprocedural states
CPT/HCPCS: 59025; 81002; 94760; G0378

== ENCOUNTER 2024-12-11 11:57 | Observation (INO) | payer MEDICAID ==
--- NOTE | 2024-12-11 17:46 | DVHDS2 ---
Physician Discharge Progress N Final Diagnosis: pelvic pressure not in labor Operations or Procedures: Operations or Procedures 38yo IUP@39.6wks was sent down from Dr. Crane's office for pelvic pressure. VSS NST reactive per RN SVE by RN: /-3 FKC/Labor/PreE precautions reviewed Dr. Crane consulted, wants her to return in 2 days for NST/BPP for term. Condition on Discharge: Stable Disposition: Home Discharge Instructions: Diet: Regular Activity: No Restrictions, As Tolerated Medications: see med list Follow Up Care: Specialist: f/u in 2 days Discharge Statement: "Patient was advised to return to the ER or call 911 if any headaches, dizziness, shortness of breath, chest pain, abdominal pain, bleeding, fevers, or worsening of medical condition. Patient was counseled about treatment plan, medications, possible side effects, patientverbalized understanding. All questions were answered to the best of my ability. This discharge took greater then 30 minutes in planning, reviewing documentation, counseling the patient, and discussing with other team members." Visit Coding OBGYN Date of Service: Dec 11, 2024 Billing Provider: FRANCHESKA GARCIA CNM HIGHWAY MAINTENANCE SUPERVISOR Common Visit Codes: 59382-[id number] OBS CARE (MOD) HIGHWAY MAINTENANCE SUPERVISOR Procedure Codes: 43165-80- NON-STRESS TEST FRANCHESKA GARCIA CNM Dec 11, 2024 17:46
== END 2024-12-11 13:09 | disposition home or self-care (01) ==
LOC: LDRP 11:57 → UNDOADMOB 11:57 → LDRP 12:07 → UNDODISOB 13:09
PROVIDERS: ADMIT Obstetrics & Gynecology; ATTEND Obstetrics & Gynecology
DX: O99.891 Other specified diseases and conditions complicating pregnancy (principal); R10.20 Pelvic and perineal pain unspecified side; Z3A.39 39 weeks gestation of pregnancy; Z98.890 Other specified postprocedural states
CPT/HCPCS: 59025; 81002; 94760; G0378

== ENCOUNTER 2024-12-13 17:10 | Observation (INO) | payer MEDICAID ==
--- NOTE | 2024-12-13 19:28 | DVH ---
BIOPHYSICAL PROFILE HISTORY: Term TECHNIQUE: Multiple transabdominal real-time grayscale sonographic images through the gravid uterus of the fetus with duplex Doppler color flow and M-mode spectral analysis FINDINGS: BIOPHYSICAL PROFILE: breathing score: 2 movement score: 2 tone score: 2 Quantitative JAGDISH score: 2 (JAGDISH: 12.3 Cm.) Total score: 8/8 The cervix obscured by head Single live fetus in cephalic presentation. heart rate 140 beats per minute. Anterior Grade 3 placenta without previa or abruption. Venous lakes visualized. Single live fetus at 40 weeks 1 day Biophysical profile score 8/8 corresponding to an TYRONE of 12/12/2024 IMPRESSION: 1. Biophysical profile score: 8/8
--- NOTE | 2024-12-14 09:48 | DVHDS2 ---
Physician Discharge Progress N Final Diagnosis: post dates 40wks Operations or Procedures: Operations or Procedures nst reactive reviwed,sono Condition on Discharge: Good Disposition: Home Discharge Instructions: Diet: Regular Activity: No Restrictions, As Tolerated Medications: na Follow Up Care: Specialist: 1d Discharge Statement: "Patient was advised to return to the ER or call 911 if any headaches, dizziness, shortness of breath, chest pain, abdominal pain, bleeding, fevers, or worsening of medical condition. Patient was counseled about treatment plan, medications, possible side effects, patientverbalized understanding. All questions were answered to the best of my ability. This discharge took greater then 30 minutes in planning, reviewing doc umentation, counseling the patient, and discussing with other team members." Visit Coding OBGYN Date of Service: Dec 13, 2024 Billing Provider: RUTH BLAKE DO COMIC BOOK DESIGNER Common Visit Codes: 08502-GMTSHAA OBS CARE (HIGH) COMIC BOOK DESIGNER Procedure Codes: 06589-35- NON-STRESS TEST RUTH BLAKE DO Dec 14, 2024 09:48
== END 2024-12-13 18:29 | disposition home or self-care (01) ==
LOC: LDRP 17:10
PROVIDERS: ADMIT Obstetrics & Gynecology; ATTEND Obstetrics & Gynecology
DX: O48.0 Post-term pregnancy (principal); Z3A.40 40 weeks gestation of pregnancy; Z79.899 Other long term (current) drug therapy; Z98.890 Other specified postprocedural states
CPT/HCPCS: 59025; 76819; 81002; 94760; G0378

== ENCOUNTER 2024-12-15 12:25 | Observation (INO) | payer MEDICAID ==
--- NOTE | 2024-12-15 14:15 | DVH ---
BIOPHYSICAL PROFILE HISTORY: TERM TECHNIQUE: Multiple transabdominal real-time grayscale sonographic images through the gravid uterus of the fetus with duplex Doppler color flow and M-mode spectral analysis FINDINGS: BIOPHYSICAL PROFILE: breathing score: 2 movement score: 2 tone score: 2 Quantitative JAGDISH score: 2 (JAGDISH: 19.4 Cm.) Total score: 8/8 The cervix obscured by head Single live fetus in cephalic presentation. heart rate 121 beats per minute. Anterior Grade 3 placenta without previa or abruption Single live fetus at 40 weeks 3 days Biophysical profile score 8/8 corresponding to an TYRONE of 12/12/2024 IMPRESSION: 1. Biophysical profile score: 8/8 2. No other measurements given.
--- NOTE | 2024-12-15 16:18 | DVHDS2 ---
Discharge Summary Date of Admission Dec 15, 2024 at 12:25 Date of Discharge: Dec 15, 2024 Admitting Diagnosis 40+ week intrauterine here for monitoring testing all reassuring NST performed ultrasound BPP reassuring Wounds: None Labs/Diagnostic Data: None Brief Hx & Hospital Course: We should 40+ weeks here for routine monitoring reassuring Consults/Reason for consult 40+ week intrauterine Operations or Procedures None Condition at Discharge: Good Final Diagnosis/Problems List 40+ week intrauterine reassuring heart tone and ultrasound Discharge Disposition: Home Discharge Instruct/Medications Diet: Regular Activity: Light activity (Kick counts labor precautions) Follow Up/Referral: Follow up as scheduled for NST BPP Scheduled Vit W/ Ferrous Fumara ( One Daily), 1 TAB PO DAILY, (Reported) Miscellaneous Medications Witch Rochelle-Glycerin (Tucks), 1 PAD TOP, (Reported) Discharge Statement: "Patient was advised to return to the ER or call 911 if any headaches, dizziness, shortness of breath, chest pain, abdominal pain, bleeding, fevers, or worsening of medical condition. Patient was counseled about treatment plan, medications, possible side effects, patientverbalized understanding. All questions were answered to the best of my ability. This discharge took greater then 30 minutes in planning, reviewing documentation, counseling the patient, and discussing with other team members." ASSESSMENT ASSESSMENT Assessment Visit Coding OBN Date of Service: Dec 14, 2024 Billing Provider: DEVON RAYA DO BOAT LOADER Common Visit Codes: 38857-MCU/OBS SAME DATE (LOW), 55528-ITM/OBS SAME DATE (MOD), 06420-LQR/OBS SAME DATE (HIGH) BOAT LOADER Procedure Codes: 54171-85- NON-STRESS TEST DEVON RAYA DO Dec 15, 2024 16:18
== END 2024-12-15 14:05 | disposition home or self-care (01) ==
LOC: LDRP 12:25
PROVIDERS: ADMIT Obstetrics & Gynecology; ATTEND Obstetrics & Gynecology
DX: O48.0 Post-term pregnancy (principal); Z3A.40 40 weeks gestation of pregnancy; Z98.890 Other specified postprocedural states
CPT/HCPCS: 59025; 76819; 81002; 94760; G0378

== ENCOUNTER 2024-12-17 06:52 | Inpatient (IN) | payer MEDICAID ==
[~2024-12-17] VITALS: Ht 172.7 cm; Wt 92.1 kg
[2024-12-17 03:20] VITALS: BP 103/50; PULSE 112; RESP 18; TEMP 98; O2SAT 97
[2024-12-17] MEDS ORDERED: BUTORPHANOL TARTRATE 2 MG/1 ML VIAL IV PRN ×2 (07:00)
[2024-12-17 08:07] LABS: Nucleated Red Blood Cells % 0.0 %
[2024-12-17 08:09] LABS: Hematocrit 36.5 % (36.0-46.0); Hemoglobin 12.6 g/dL (12.2-16.2); Mean Corpuscular Hemoglobin 36.8 pg (28.0-32.0); Mean Corpuscular Volume 106.4 fL (80.0-100.0)
[2024-12-17 08:12] LABS: INR 0.95 (0.9-1.15); Partial Thromboplastin Time 27.1 SEC (24.5-34.5); Prothrombin Time 10.1 sec (9.3-11.8)
[2024-12-17 08:17] LABS: Urine Protein, UAD Negative (Negative)
[2024-12-17 08:18] LABS: Alanine Aminotransferase 10 U/L (7-40); Albumin 3.7 g/dL (3.2-4.8); Anion Gap 10 (5-15); Bilirubin, Total 0.6 mg/dL (0.2-1.0); Calcium 9.1 mg/dL (8.7-10.4); Carbon Dioxide 23 mmol/L (20-31); Chloride 104 mmol/L (98-107); Glucose 88 mg/dL (74-106); Potassium 3.7 mmol/L (3.5-5.1); Sodium 137 mmol/L (136-145); Total Protein 6.6 g/dL (5.7-8.2)
[2024-12-17 08:20] LABS: Alkaline Phosphatase 176 U/L (46-116); BUN/Creatinine Ratio 8.9 (10.0-20.0); Blood Urea Nitrogen < 5 mg/dL (9-23)
[2024-12-17 08:35] LABS: Amphetamine Screen, Urine Neg (NEGATIVE); Barbiturate Scree,Urine Neg (NEGATIVE); Benzodiazephine Screen, Urine Neg (NEGATIVE); Cannabinoid Screen, Urine Neg (NEGATIVE); Cocaine Screen, Urine Neg (NEGATIVE); Opiate Scree,Urine Neg (NEGATIVE); Phencyclidine Screen, Urine Neg (NEGATIVE)
[2024-12-17] MEDS: WITCH HAZEL-GLYCERIN PAD TOP PRN (08:50)
[2024-12-17] MEDS: PHISODERM TOP SOLN 240ML BTL TOP PRN (08:50)
[2024-12-17] MEDS: DERMOPLAST 60ML BOTTLE TOP PRN (08:50)
[2024-12-17] MEDS: FAMOTIDINE (10MG/ML) 2ML VL IV SCH (08:51)
[2024-12-17] MEDS: LACTATED RINGER'S 1,000 ML IV SCH (08:51)
[2024-12-17] MEDS ORDERED: PENICILLIN G POTASSIUM 2,500,000 UNITS in D5W 5% 50 ML IV SCH (11:00)
[2024-12-17] MEDS: NALOXONE HCL 0.4 MG/ML VIAL IV ONE (12:45)
[2024-12-17] MEDS: PENICILLIN G POT 5MIL/D5 50ML 50 ML IV ONE (13:18)
[2024-12-17] MEDS: ROPIVACAINE HCL 100 ML ONE (13:19)
--- NOTE | 2024-12-17 14:42 | DVHHP2 ---
OB CC & HPI Date Date of Admission: Dec 17, 2024 Patient Identification: : 8 Para: 5 EDC: Dec 12, 2024 EGA: 40+ wks Chief Complaints: Reason for admission: induction of labor (post date induction early labor) Other reason for admission: Induction post dates Admission Nurse Assessment Rev: Yes Past Medical History Cardiac: No pertinent Hx Pulmonary: No pertinent Hx Central Nervous System: No pertinent Hx GI: No pertinent Hx Hemotology/Oncology: No pertinent Hx Hepatobiliary: No pertinent Hx Psychiatric: No pertinent Hx Musculoskeletal: No pertinent Hx Rheumotologic: No pertinent Hx Infectious Disease: No peritnent Hx ENT: No pertinent Hx Renal/: No pertinent Hx Endocrine: No pertinent Hx Dermatology: No pertinent Hx Past Surgical History: No pertinent Hx OB History OB History Care: Limited Care Ultrasounds: Normal mid trimester US Obstetrical Complications: None Medical Complications: None Allergies: Coded Allergies: NO KNOWN ALLERGIES (Unverified , 09/11/13) Home Meds Reported Medications Marcus Byrd-Glycerin ([place]) 1 Pad Pd, 1 PAD TOP, PAD 05/15/22 Vit W/ Ferrous Fumara ( One Daily) Daily Tab, 1 TAB PO DAILY, #90 TAB 3 Refills 06/04/14 Current Medications Current Medications Medications (Trade) Dose Ordered Sig/[place] Route PRN Reason Start Time Stop Time Status Last Admin Lactated Ringer's 1,000 ml @ 125 mls/hr Q8H IV 12/17/24 07:00 12/17/24 13:18 Penicillin G Potassium [id number] units/Dextrose 50 ml @ 100 mls/hr Q4H IV 12/17/24 11:00 Marcus Byrd (Eliezercks) 1 pad PRN PRN TOP PERINEAL AREA DISCOMFORT 12/17/24 07:00 12/17/24 08:50 Sodium Lauryl Sulfate (Phisoderm) 240 ml PRN PRN TOP PERINEAL AREA DISCOMFORT 12/17/24 07:00 12/17/24 08:50 Benzocaine (Dermoplast) 1 applic PRN PRN TOP PERINEAL AREA DISCOMFORT 12/17/24 07:00 12/17/24 08:50 Butorphanol Tartrate (Stadol Injection) 1 mg Q4HPRN PRN IV MODERATE PAIN (4-6 PAIN SCALE) 12/17/24 07:00 Butorphanol Tartrate (Stadol Injection) 2 mg Q4HPRN PRN IV SEVERE PAIN (7-10 PAIN SCALE) 12/17/24 07:00 Misoprostol (Cytotec) 50 mcg Q4HPRN PRN PO CERVICAL RIPENING 12/17/24 07:00 12/17/24 09:15 Lidocaine HCl (Xylocaine) 40 ml ONCE PRN IJ PERINEAL AREA DISCOMFORT 12/17/24 07:00 Famotidine (Pepcid Injection) 20 mg Q12H IV 12/17/24 08:45 12/17/24 08:51 Family & Social History Family/Social History Blood Type: O+ Rubella: immune RPR/VDRL: Negative GBS Status: Positive HBsAG: Negative Review of Systems Constitutional: No symptom reported Ears, Nose, & Throat: No symptom reported Eyes: No symptom reported Pulmonary/Respiratory: No symptom reported Cardiovascular: No symptom reported Gastrointestinal: No symptom reported Genitourinary: No symptom reported Musculoskeletal: No symptom reported Skin: No symptom reported Psychiatric: No symptom reported Endocrine: No symptom reported Hemotologic/Lymphatic: No symptom reported OB Admission Exam Physical Exam HEENT: TMs Normal, Fontanelles Normal, Nasal Mucosa Normal, Eyes non-injected, Oropharynx Normal, PERRLA, Moist Membranes, EOMI Heart: Rhythm Normal Lungs: Clear Abdomen: Gravid ([place] 8 +lbs) Extremities: Normal Reflexes: Normal Cervical Dilatation: 10cm Effacement: 100% Station: +1 Membranes: Ruptured (Tr meconium) Amniotic Fluid: Thin Meconium Heart Rate: 130's Accelerations: Accelerations Present Decelerations: No Decelerations Short Term Variability: Present Long-Term Variability: Average (6-25) Contractions on Admission: < 5 Minutes Apart Intensity: Moderate (s/p epidural) OB Plan Plan Admitting Diagnosis: induction post dates Plan: Induction Visit Coding OBGYN Date of Service: Dec 17, 2024 Billing Provider: DEVON RAYA DO FLOOR STEWARD/STEWARDESS Common Visit Codes: 48850-DSP/OBS SAME DATE (HIGH) FLOOR STEWARD/STEWARDESS Procedure Codes: 00399-ABRFN OB CARE,VAG DELIVERY DEVON RAYA DO Dec 17, 2024 14:42
[2024-12-17] MEDS: LACT. RINGERS/OXYTOCIN 20UNITS 500 ML IV ONE ×2 (14:44→15:09)
--- NOTE | 2024-12-17 14:45 | LDN2 ---
Labor and Delivery Note Date 12/17/24 Age 39 8 Para 5 AB 2 EDC 12/12/2024 EGA 40+ Diagnosis [place] Multip, post dates , B Strep + Vaginal Delivery: VTX Vacuum Assisted: Yes (Vacuum placed at 2+ station secondary to prolonged decreased heart tones patient essentially delivered spontaneous with fingertip pressure as once the vacuum was placed the rotated but did deliver occiput posterior without difficulty no shoulder dystocia. No pop offs 1 single contraction with the vacuum placed a 2 pushes of the baby came out.) Sex: Male Weight 9lbs 4 oz Apgars 8/8 Nuchal Cord Transected: No Amniotic Fluid: Meconium Stained Anesthesia Epidural working well she is very comfortable Episiotomy: No Extension: Yes (First-degree anterior skin thickness only left vaginal) Repaired with Three 0 chromic EBL 300 cc Labs Laboratory Tests 08/07/24 13:50: Hepatitis B Surface Antigen Negative, HIV (1&2) Antibody Negative, Rubella Antibody Positive Blood Bank 12/17/24 07:14: Blood Type O POSITIVE Conditions Stable guarded Baseball Hand Sewer None present respiratory called secondary to decreased heart tones prolonged prior to deliver Visit Coding OBGYN Date of Service: Dec 17, 2024 Billing Provider: DEVON RAYA DO LIFE INSURANCE SALESPERSON Common Visit Codes: 80389-PQP/OBS SAME DATE (MOD), 89492-BKG/OBS SAME DATE (HIGH) LIFE INSURANCE SALESPERSON Procedure Codes: 19884-EAWVD OB CARE,VAG DELIVERY DEVON RAYA DO Dec 17, 2024 14:45
[2024-12-17] MEDS: LIDOCAINE 2%HCL (LOCAL ANESTH.) INJ 20ML MDV IJ PRN (15:08)
[2024-12-17] MEDS ORDERED: ONDANSETRON ODT 4 MG TAB PO PRN (15:30)
[2024-12-17] MEDS: IBUPROFEN 600 MG TAB PO PRN (18:24)
[2024-12-17 18:56] VITALS: BP 115/55; PULSE 100; RESP 16; TEMP 98; O2SAT 96
[2024-12-17 23:20] VITALS: BP 103/50; PULSE 112; RESP 18; TEMP 98; O2SAT 97
[2024-12-17] MEDS: ACETAMINOPHEN 325 MG TAB PO PRN (23:27)
[2024-12-18 03:30] VITALS: BP 102/56; PULSE 83; RESP 16; TEMP 98; O2SAT 96
--- NOTE | 2024-12-18 05:53 | DVHDS2 ---
Discharge Summary Date of Admission Dec 17, 2024 at 06:52 Date of Discharge: Dec 18, 2024 Admitting Diagnosis induction post dates Wounds: vaginal tear Labs/Diagnostic Data: Laboratory Results Test 12/17/24 07:14 12/17/24 06:50 White Blood Count 9.8 10^3/uL (4.4-10.8) Red Blood Count 3.43 10^6/uL (4.0-5.20) Hemoglobin 12.6 g/dL (12.2-16.2) Hematocrit 36.5 % (36.0-46.0) Mean Corpuscular Volume 106.4 fL (80.0-100.0) Mean Corpuscular Hemoglobin 36.8 pg (28.0-32.0) Mean Corpuscular Hemoglobin Concent 34.6 g/dL (32.0-36.0) Red Cell Distribution Width 12.8 % (11.8-14.3) Platelet Count 211 10^3/uL (140-450) Mean Platelet Volume 8.8 fL (6.9-10.8) Neutrophils (%) (Auto) 74.3 % (37.0-80.0) Lymphocytes (%) (Auto) 14.7 % (10.0-50.0) Monocytes (%) (Auto) 9.7 % (0.0-12.0) Eosinophils (%) (Auto) 0.9 % (0.0-7.0) Basophils (%) (Auto) 0.4 % (0.0-2.0) Neutrophils # (Auto) 7.3 10 ^3/uL (1.6-8.6) Lymphocytes # (Auto) 1.4 10 ^3/uL (0.4-5.4) Monocytes # (Auto) 1.0 10 ^3/uL (0-1.3) Eosinophils # (Auto) 0.1 10 ^3/uL (0-0.8) Basophils # (Auto) 0 10 ^3/uL (0-0.2) Nucleated Red Blood Cells 0.0 % Prothrombin Time 10.1 sec (9.3-11.8) Prothrombin Time INR 0.95 (0.9-1.15) Activated Partial Thromboplast Time 27.1 SEC (24.5-34.5) Sodium Level 137 mmol/L (136-145) Potassium Level 3.7 mmol/L (3.5-5.1) Chloride Level 104 mmol/L (98-107) Carbon Dioxide Level 23 mmol/L (20-31) Anion Gap 10 (5-15) Blood Urea Nitrogen < 5 mg/dL (9-23) Creatinine 0.56 mg/dL (0.550-1.02) Glomerular Filtration Rate Calc 118 mL/min (>90) BUN/Creatinine Ratio 8.9 (10.0-20.0) Serum Glucose 88 mg/dL (74-106) Calcium Level 9.1 mg/dL (8.7-10.4) Total Bilirubin 0.6 mg/dL (0.2-1.0) Aspartate Amino Transferase (AST) 20 U/L (13-40) Alanine Aminotransferase (ALT) 10 U/L (7-40) Alkaline Phosphatase 176 U/L (46-116) Total Protein 6.6 g/dL (5.7-8.2) Albumin 3.7 g/dL (3.2-4.8) Treponema pallidum Antibody Non-reactive (Negative) Hepatitis C Antibody Negative (Negative) Urine Color Light-yellow (Yellow) Urine Clarity Hazy (Clear) Urine pH 6.5 (5.0-9.0) Urine Specific [place] 1.008 (1.001-1.035) Urine Protein Negative (Negative) Urine Ketones Negative (Negative) Urine Blood Negative /uL (Negative) Urine Nitrite Negative (Negative) Urine Bilirubin Negative (Negative) Urine Urobilinogen Normal mg/dL (Negative) Urine Leukocyte Esterase Trace /uL (Negative) Urine RBC 2 /hpf (0 - 4) Urine Microscopic WBC 14 /HPF (0-5) Urine Squamous Epithelial Cells Few /hpf (<5) Urine Bacteria Few /hpf (None Seen) Urine Glucose Normal mg/dL (Normal) Urine Opiates Screen Neg (NEGATIVE) Urine Fentanyl Screen Neg (NEGATIVE) Urine Barbiturates Screen Neg (NEGATIVE) Urine Phencyclidine Screen Neg (NEGATIVE) Urine Amphetamines Screen Neg (NEGATIVE) Urine Benzodiazepines Screen Neg (NEGATIVE) Urine Cocaine Screen Neg (NEGATIVE) Urine Cannabinoids Screen Neg (NEGATIVE) Other Laboratory Tests 12/17/24 07:14 Brief Hx & Hospital Course: rapid induction vacuum delivery Consults/Reason for consult none Operations or Procedures none Condition at Discharge: Good Final Diagnosis/Problems List Vacuum delivery Discharge Disposition: Home Discharge Instruct/Medications Diet: Regular Activity: Light activity (pelvic rest 6 weeks) Follow Up/Referral: 2 weeks primary Ob physician / treasury director Medications: none Scheduled Vit W/ Ferrous Fumara ( One Daily), 1 TAB PO DAILY, (Reported) Miscellaneous Medications Witch Rochelle-Glycerin (Tucks), 1 PAD TOP, (Reported) Discharge Statement: "Patient was advised to return to the ER or call 911 if any headaches, dizziness, shortness of breath, chest pain, abdominal pain, bleeding, fevers, or worsening of medical condition. Patient was counseled about treatment plan, medications, possible side effects, patientverbalized understanding. All questions were answered to the best of my ability. This discharge took greater then 30 minutes in planning, reviewing documentation, counseling the patient, and discussing with other team members." ASSESSMENT ASSESSMENT Assessment Visit Coding OBGYN Date of Service: Dec 18, 2024 Billing Provider: DEVON RAYA DO [employer] [address] JUDGE Common Visit Codes: 39519-VHS/OBS SAME DATE (LOW), 57246-EUO/OBS SAME DATE (MOD), 91133-AMB/OBS SAME DATE (HIGH) [employer]INAL [employer] JUDGE Procedure Codes: 08194-JOKSN OB CARE,VAG DELIVERY DEVON RAAY DO Dec 18, 2024 05:52
[2024-12-18 07:00] VITALS: BP 105/54; PULSE 84; TEMP 98; O2SAT 95
[2024-12-18 11:00] VITALS: BP 121/69; PULSE 100; RESP 20; TEMP 98.2; O2SAT 96
[2024-12-18 15:08] VITALS: BP 108/61; PULSE 81; RESP 18; TEMP 97.9; O2SAT 97
== END 2024-12-18 17:53 | disposition home or self-care (01) | DRG 560 ==
LOC: LDRP 06:52
PROVIDERS: ADMIT Obstetrics & Gynecology; ATTEND Obstetrics & Gynecology
PROC: 10D07Z6 Extraction of Products of Conception, Vacuum, Via Natural or Artificial Opening (ICD-10-PCS; principal; 2024-12-17)
PROC: 0HQ9XZZ Repair Perineum Skin, External Approach (ICD-10-PCS; 2024-12-17)
PROC: 3E0R3BZ Introduction of Anesthetic Agent into Spinal Canal, Percutaneous Approach (ICD-10-PCS; 2024-12-17)
PROC: 00HU33Z Insertion of Infusion Device into Spinal Canal, Percutaneous Approach (ICD-10-PCS; 2024-12-17)
DX: O48.0 Post-term pregnancy (principal); Z37.0 Single live birth; O70.0 First degree perineal laceration during delivery; O77.0 Labor and delivery complicated by meconium in amniotic fluid; O99.824 Streptococcus B carrier state complicating childbirth; Z3A.40 40 weeks gestation of pregnancy
CPT/HCPCS: 36415; 59409; 62282; 80053; 80307; 81001; 85025; 85610; 85730; 86780; 86803; 86850; 86900; 86901; 94760; 94762; 96360; 96361; 96365; 96366; 96374; G0378; J2540; J2590; J3490; J7060